=== PATIENT | male | born 1970 | race Caucasian/White ===

== ENCOUNTER 2022-08-24 10:38 | Inpatient (IN) | payer BC, SELFPAY ==
[2022-08-24 11:29] VITALS: BMI 34.2
[2022-08-24 12:00] LABS: SARS-CoV-2 NAA Rapid Test Not Detected (NotDetected)
[2022-08-24] MEDS ORDERED: Ondansetron PF 4 MG/2 ML Vial IVP PRN (12:47)
[2022-08-24] MEDS ORDERED: Acetaminophen 325 MG TAB PO PRN (12:47)
[2022-08-24] MEDS ORDERED: HYDROcodone/Acetaminophen 5/325 mg Tablet PO PRN (12:47)
[2022-08-24] MEDS ORDERED: Carvedilol 6.25 MG TAB PO SCH (13:00)
[2022-08-24 14:20] LABS: Troponin I 1.379 ng/mL (< 0.028)
[2022-08-24 15:57] LABS: Cardiac Risk 6.1 (Less than 4.5)
[2022-08-24] MEDS: Labetalol HCl 100 MG/20 ML VIAL SLOW IVP PRN ×2 (16:18→21:08)
[2022-08-24] MEDS: Carvedilol 6.25 MG TAB PO SCH (20:06)
[2022-08-24] MEDS: Nitroglycerin 2% Ointment 1 INCH/1 GM Packet TOP SCH (20:06)
[2022-08-24 20:07] LABS: Hemoglobin A1c 5.6 % (4.0-6.0)
[2022-08-24] MEDS ORDERED: Enoxaparin Sodium 120 MG/0.8 ML SYRINGE SC SCH (21:00)
[2022-08-24] MEDS: niCARdipine 25 MG in Sodium Chloride 0.9% 250 ML 250 ML IVPB SCH (22:27)
[2022-08-25] MEDS: niCARdipine 25 MG in Sodium Chloride 0.9% 250 ML 250 ML IVPB SCH (03:37)
[2022-08-25 04:33] LABS: #Basophils 0.1 10x3/uL (0.0-0.2); #Eosinphils 0.2 10x3/uL (0.0-0.5); #Monocytes 0.7 10x3/uL (0.0-1.1); #Neutrophils 7.9 10x3/uL (1.5-8.4); %Basophils 0.7 % (0.0-2.0); %Eosinophils 2.3 % (0.0-6.0); %Lymphocytes 14.3 % (18.0-47.0); %Monocytes 6.7 % (0.0-10.0); %Neutrophils 75.5 % (40.0-75.0); Hemoglobin 13.3 g/dL (13.5-17.5); Mean Corpuscular HGB CONC 35.5 g/dL (32.0-36.0); Mean Corpuscular Hemoglobin 34.7 pg (27.0-33.0); Mean Corpuscular Volume 97.9 fl (81.2-95.1); Mean Platelet Volume 9.2 fl (7.4-10.4); Platelet Count 233 10x3/uL (150-450); RBC Distribution Width 13.6 % (11.5-14.5); Red Blood Cell (RBC) Count 3.83 10x6/uL (4.32-5.72); White Blood Cell (WBC) Count 10.5 10x3/uL (3.5-10.5)
[2022-08-25 05:05] LABS: Anion Gap 15 mmol/L (10-20); BUN (Urea Nitrogen) 12 mg/dL (8.4-25.7); Calc. Creatinine Clearance 187 mL/min (70-130); Calcium 9.2 mg/dL (7.8-10.44); Carbon Dioxide 27 mmol/L (22-29); Chloride 99 mmol/L (98-107); Estimated GFR 103; Glucose 146 mg/dL (70-105); Potassium 3.5 mmol/L (3.5-5.1); Sodium 137 mmol/L (136-145)
[2022-08-25] MEDS: Nitroglycerin 2% Ointment 1 INCH/1 GM Packet TOP SCH (06:04)
[2022-08-25] MEDS: Carvedilol 6.25 MG TAB PO SCH (06:04)
[2022-08-25] MEDS ORDERED: Nitroglycerin 50 MG/250 ML BOT 250 ML ONE (06:11)
[2022-08-25] MEDS ORDERED: Heparin 10,000 UNITS/ 10 ML VIAL ONE ×3 (06:12→08:23)
[2022-08-25] MEDS ORDERED: Verapamil 5 MG/2 ML VIAL ONE (06:12)
[2022-08-25] MEDS ORDERED: Adenosine 6 MG/2 ML VIAL ONE (06:13)
[2022-08-25] MEDS ORDERED: Bivalirudin 250 MG VIAL ONE (06:13)
[2022-08-25] MEDS ORDERED: Lidocaine 1% MPF 2 ML VIAL ONE (06:17)
[2022-08-25] MEDS ORDERED: Lidocaine 1% 20 ML MDV ONE (06:19)
[2022-08-25] MEDS ORDERED: Midazolam HCl 2 mg/2 ml Vial ONE ×2 (06:58→08:02)
[2022-08-25] MEDS ORDERED: Fentanyl 100 MCG/2 ML VIAL ONE (06:58)
[2022-08-25] MEDS ORDERED: TICAGRELOR 90 MG TABLET ONE (07:30)
[2022-08-25] MEDS ORDERED: Morphine 2 MG/ML VIAL SLOW IVP PRN (08:25)
[2022-08-25] MEDS ORDERED: Lisinopril 10 MG TAB PO SCH (09:00)
[2022-08-25] MEDS: Fenofibrate Nanocrystallized 145 MG TAB PO SCH (09:07)
[2022-08-25] MEDS: Sodium Chloride 0.9% 1,000 ML IV SCH ×2 (09:07→18:43)
[2022-08-25 09:19] LABS: Troponin I 8.075 ng/mL (< 0.028)
[2022-08-25 09:26] LABS: Troponin I 37.014 ng/mL (< 0.028)
[2022-08-25] MEDS ORDERED: Losartan 25 MG TAB PO SCH (12:00)
[2022-08-25] MEDS: Carvedilol 12.5 MG TAB PO SCH (16:25)
[2022-08-25] MEDS ORDERED: Atorvastatin Calcium 40 MG TAB PO SCH ×2 (21:00)
[2022-08-26] MEDS: Sodium Chloride 0.9% 1,000 ML IV SCH (03:45)
[2022-08-26 04:06] LABS: #Basophils 0.1 10x3/uL (0.0-0.2); #Eosinphils 0.2 10x3/uL (0.0-0.5); #Monocytes 0.7 10x3/uL (0.0-1.1); #Neutrophils 5.4 10x3/uL (1.5-8.4); %Basophils 0.6 % (0.0-2.0); %Eosinophils 1.8 % (0.0-6.0); %Lymphocytes 22.3 % (18.0-47.0); %Monocytes 9.1 % (0.0-10.0); Hemoglobin 12.9 g/dL (13.5-17.5); Mean Corpuscular HGB CONC 34.5 g/dL (32.0-36.0); Mean Corpuscular Hemoglobin 34.6 pg (27.0-33.0); Mean Corpuscular Volume 100.3 fl (81.2-95.1); Mean Platelet Volume 9.4 fl (7.4-10.4); Platelet Count 202 10x3/uL (150-450); RBC Distribution Width 13.8 % (11.5-14.5); Red Blood Cell (RBC) Count 3.73 10x6/uL (4.32-5.72); White Blood Cell (WBC) Count 8.2 10x3/uL (3.5-10.5)
[2022-08-26 04:22] LABS: ALT (SGPT) 35 U/L (8-55); AST (SGOT) 51 U/L (5-34); Albumin 3.5 g/dL (3.5-5.0); Alkaline Phosphatase 39 U/L (40-110); Anion Gap 12 mmol/L (10-20); BUN (Urea Nitrogen) 12 mg/dL (8.4-25.7); Bilirubin, Total 0.7 mg/dL (0.2-1.2); Calc. Creatinine Clearance 189 mL/min (70-130); Calcium 9.1 mg/dL (7.8-10.44); Carbon Dioxide 27 mmol/L (22-29); Chloride 105 mmol/L (98-107); Estimated GFR 103; Globulin 2.6 g/dL (2.4-3.5); Glucose 134 mg/dL (70-105); Potassium 3.5 mmol/L (3.5-5.1); Protein, Total 6.1 g/dL (6.0-8.3); Sodium 140 mmol/L (136-145)
[2022-08-26] MEDS: Carvedilol 12.5 MG TAB PO SCH (07:34)
[2022-08-26] MEDS: Fenofibrate Nanocrystallized 145 MG TAB PO SCH (07:34)
[2022-08-26] MEDS ORDERED: Lisinopril 20 MG TAB PO SCH (09:00)
[2022-08-26] MEDS ORDERED: Aspirin Chewable 81 MG TAB PO SCH (09:00)
[2022-08-26] MEDS ORDERED: Losartan 25 MG TAB PO SCH (09:00)
[2022-08-26] MEDS ORDERED: Clopidogrel Bisulfate 75 MG TAB PO SCH (09:00)
[2022-08-26 10:26] VITALS: BP 153/87; TEMP 97.7
== END 2022-08-26 10:29 | disposition home or self-care (01) | DRG 247 ==
LOC: INTOOBSV 10:38 → CSHICU 10:38 → OBSVTOIN 08-25 08:25
PROVIDERS: ADMIT Internal Medicine; ATTEND Internal Medicine
PROC: 027236Z Dilation of Coronary Artery, Three Arteries with Three Drug-eluting Intraluminal Devices, Percutaneous Approach (ICD-10-PCS; principal; 2022-08-25)
PROC: 4A023N7 Measurement of Cardiac Sampling and Pressure, Left Heart, Percutaneous Approach (ICD-10-PCS; 2022-08-25)
PROC: B2111ZZ Fluoroscopy of Multiple Coronary Arteries using Low Osmolar Contrast (ICD-10-PCS; 2022-08-25)
PROC: B2151ZZ Fluoroscopy of Left Heart using Low Osmolar Contrast (ICD-10-PCS; 2022-08-25)
DX: I21.4 Non-ST elevation (NSTEMI) myocardial infarction (principal); I16.0 Hypertensive urgency; I51.7 Cardiomegaly; E78.1 Pure hyperglyceridemia; R73.9 Hyperglycemia, unspecified; I25.10 Atherosclerotic heart disease of native coronary artery without angina pectoris; E88.81 Metabolic syndrome and other insulin resistance; Z20.822 Contact with and (suspected) exposure to COVID-19; Z88.0 Allergy status to penicillin
CPT/HCPCS: 36415; 80048; 80053; 80061; 83036; 83735; 84484; 85025; 85347; 92928; 92929; 93005; 93010; 93306; 93458; 96372; 96374; 96375; 96376; 97139; 99152; 99153; C1725; C1769; C1874; C1887; C1894; C9600; C9601; G0378; J0153; J0583; J1644; J1650; J2250; J3010; J7050; U0002

== ENCOUNTER 2023-11-30 13:31 | Observation (INO) | payer BC ==
[2023-11-30 14:51] LABS: #Basophils 0.1 10x3/uL (0.0-0.2); #Eosinphils 0.5 10x3/uL (0.0-0.5); #Monocytes 0.7 10x3/uL (0.0-1.1); #Neutrophils 8.1 10x3/uL (1.5-8.4); %Basophils 0.8 % (0.0-2.0); %Eosinophils 4.6 % (0.0-6.0); %Lymphocytes 18.3 % (18.0-47.0); %Monocytes 6.3 % (0.0-10.0); %Neutrophils 69.5 % (40.0-75.0); Hematocrit 46.4 % (38.8-50.0); Hemoglobin 15.7 g/dL (13.5-17.5); Mean Corpuscular HGB CONC 33.8 g/dL (32.0-36.0); Mean Corpuscular Hemoglobin 29.5 pg (27.0-33.0); Mean Corpuscular Volume 87.1 fl (81.2-95.1); Mean Platelet Volume 9.4 fl (7.4-10.4); Platelet Count 273 10x3/uL (150-450); RBC Distribution Width 14.6 % (11.5-14.5); Red Blood Cell (RBC) Count 5.33 10x6/uL (4.32-5.72); White Blood Cell (WBC) Count 11.7 10x3/uL (3.5-10.5)
[2023-11-30 14:58] LABS: ALT (SGPT) 16 U/L (8-55); AST (SGOT) 14 U/L (5-34); Albumin 4.7 g/dL (3.5-5.0); Alkaline Phosphatase 47 U/L (40-110); Anion Gap 12 mmol/L (10-20); BUN (Urea Nitrogen) 17 mg/dL (8.4-25.7); Bilirubin, Total 0.4 mg/dL (0.2-1.2); Calc. Creatinine Clearance 0 mL/min (70-130); Calcium 9.9 mg/dL (7.8-10.44); Carbon Dioxide 28 mmol/L (22-29); Chloride 102 mmol/L (98-107); Estimated GFR 99; Globulin 2.6 g/dL (2.4-3.5); Glucose 108 mg/dL (70-105); Potassium 4.4 mmol/L (3.5-5.1); Protein, Total 7.3 g/dL (6.0-8.3); Sodium 138 mmol/L (136-145)
[2023-11-30 15:02] LABS: Troponin I Less than 0.010 ng/mL (< 0.028)
[2023-11-30] MEDS ORDERED: Aspirin Chewable 81 MG TAB ONE (15:18)
[2023-11-30] MEDS ORDERED: Nitroglycerin 0.4mg/Hour PATCH ONE (15:18)
[2023-11-30] MEDS ORDERED: Nitroglycerin 2% Ointment 1 INCH/1 GM Packet ONE (15:42)
[2023-11-30] MEDS ORDERED: Docusate 100 MG CAP PO PRN (16:41)
[2023-11-30] MEDS ORDERED: Calcium Carbonate 500 MG ChewTAB PO PRN (16:42)
[2023-11-30] MEDS ORDERED: Nitroglycerin 0.4 MG TAB (25 Tab Bottle) SL PRN (16:42)
[2023-11-30] MEDS ORDERED: Ondansetron PF 4 MG/2 ML Vial IVP PRN (16:42)
[2023-11-30] MEDS ORDERED: Senokot S 8.6-50 MG TAB PO PRN (16:42)
[2023-11-30] MEDS ORDERED: Acetaminophen 325 MG TAB PO PRN (16:42)
[2023-11-30] MEDS ORDERED: Ondansetron ODT 4 MG TAB PO PRN (16:42)
[2023-11-30] MEDS ORDERED: Enoxaparin 80 MG (0.8 mL) SYRINGE SC SCH (16:45)
[2023-11-30] MEDS ORDERED: Electrolyte Replacement Protocol 1 EACH FS SCH (16:45)
[2023-11-30] MEDS: Clopidogrel Bisulfate 75 MG TAB PO SCH (17:23)
[2023-11-30] MEDS: Carvedilol 12.5 MG TAB PO SCH (17:23)
[2023-11-30] MEDS ORDERED: Communication Order-Pharmacy FS SCH (17:30)
[2023-11-30 17:39] LABS: Troponin I Less than 0.010 ng/mL (< 0.028)
[2023-11-30] MEDS: Magnesium 2 GM/50 ML(in water) 2 GM in Premix 1 BAG IVPB SCH (17:48)
[2023-11-30 19:27] VITALS: BMI 39.1
[2023-11-30 20:43] LABS: Troponin I Less than 0.010 ng/mL (< 0.028)
[2023-11-30] MEDS: Nitroglycerin 2% Ointment 1 INCH/1 GM Packet TOP SCH (21:35)
[2023-11-30] MEDS ORDERED: FLU VACC QS2023-24(6MOS UP)/PF 60 MCG/0.5 ML SYRINGE IM ONE (21:45)
[2023-11-30] MEDS: Enoxaparin 120 MG/0.8 ML SYRINGE SC SCH (21:48)
[2023-11-30] MEDS: Icosapent Ethyl 1 GM CAPSULE PO SCH (21:49)
[2023-11-30] MEDS: Enoxaparin 30 MG (0.3 mL) SYRINGE SC SCH (21:49)
[2023-12-01] MEDS: Lisinopril 20 MG TAB PO SCH (05:52)
[2023-12-01] MEDS: Aspirin 81 mg Enteric Coated Tablet PO SCH (05:53)
[2023-12-01 06:08] LABS: #Basophils 0.1 10x3/uL (0.0-0.2); #Eosinphils 0.5 10x3/uL (0.0-0.5); #Monocytes 0.7 10x3/uL (0.0-1.1); #Neutrophils 5.1 10x3/uL (1.5-8.4); %Basophils 0.8 % (0.0-2.0); %Eosinophils 5.6 % (0.0-6.0); %Lymphocytes 28.2 % (18.0-47.0); %Monocytes 7.7 % (0.0-10.0); %Neutrophils 57.4 % (40.0-75.0); Hematocrit 38.7 % (38.8-50.0); Hemoglobin 12.8 g/dL (13.5-17.5); Mean Corpuscular HGB CONC 33.1 g/dL (32.0-36.0); Mean Corpuscular Hemoglobin 28.8 pg (27.0-33.0); Mean Platelet Volume 9.1 fl (7.4-10.4); Platelet Count 226 10x3/uL (150-450); RBC Distribution Width 14.9 % (11.5-14.5); Red Blood Cell (RBC) Count 4.45 10x6/uL (4.32-5.72); White Blood Cell (WBC) Count 8.9 10x3/uL (3.5-10.5)
[2023-12-01 06:23] LABS: PTT 25.6 sec (22.0-33.0)
[2023-12-01 06:25] LABS: ALT (SGPT) 14 U/L (8-55); AST (SGOT) 11 U/L (5-34); Albumin 3.9 g/dL (3.5-5.0); Alkaline Phosphatase 39 U/L (40-110); Anion Gap 13 mmol/L (10-20); BUN (Urea Nitrogen) 22 mg/dL (8.4-25.7); Bilirubin, Total 0.4 mg/dL (0.2-1.2); Calc. Creatinine Clearance 206 mL/min (70-130); Calcium 8.9 mg/dL (7.8-10.44); Carbon Dioxide 27 mmol/L (22-29); Cardiac Risk 4.3 (Less than 4.5); Chloride 103 mmol/L (98-107); Cholesterol 187 mg/dl (< 200 Desired); Estimated GFR 103; Globulin 2.1 g/dL (2.4-3.5); Glucose 125 mg/dL (70-105); HDL Cholesterol 43 mg/dL (>60 Neg Risk); LDL Cholesterol, Calculated 83 mg/dL; Sodium 139 mmol/L (136-145); Triglycerides 306 mg/dL (Less than 150)
[2023-12-01 07:04] VITALS: TEMP 97.8
[2023-12-01] MEDS ORDERED: Aspirin Chewable 81 MG TAB PO SCH (09:00)
[2023-12-01] MEDS: Atorvastatin Calcium 40 MG TAB PO SCH (09:28)
[2023-12-01] MEDS: Magnesium 2 GM/50 ML(in water) 2 GM in Premix 1 BAG IVPB SCH (09:31)
[2023-12-01] MEDS ORDERED: Heparin 10,000 UNITS/ 10 ML VIAL ONE (10:47)
[2023-12-01] MEDS ORDERED: Verapamil 5 MG/2 ML VIAL ONE (10:47)
[2023-12-01] MEDS ORDERED: Nitroglycerin 50 MG/250 ML BOT 250 ML ONE (10:47)
[2023-12-01] MEDS ORDERED: Atropine Sulfate 1 mg/1 ml Vial ONE (10:47)
[2023-12-01] MEDS ORDERED: Adenosine 6 mg (2 mL) VIAL ONE (10:48)
[2023-12-01] MEDS ORDERED: Midazolam HCl 2 mg/2 ml Vial ONE (10:48)
[2023-12-01] MEDS ORDERED: Lidocaine 1% PF 5 ML VIAL ONE (10:48)
[2023-12-01] MEDS ORDERED: fentaNYL 50 mcg/mL 1 mL Vial ONE (10:48)
[2023-12-01] MEDS ORDERED: Acetaminophen/Codeine 30-300mg Tablet PO PRN ×2 (12:01)
[2023-12-01] MEDS ORDERED: Nitroglycerin 0.4 MG TAB (25 Tab Bottle) SL PRN (12:01)
[2023-12-01] MEDS ORDERED: Sodium Chloride 0.9% 200 ML IV PRN (12:01)
[2023-12-01 13:30] VITALS: BP 163/92
== END 2023-12-01 16:30 | disposition home or self-care (01) ==
LOC: CSHERS 13:31 → CSHTELE 16:50
PROVIDERS: ADMIT Family Medicine; ATTEND Family Medicine
PROC: 4A023N7 Measurement of Cardiac Sampling and Pressure, Left Heart, Percutaneous Approach (ICD-10-PCS; principal; 2023-12-01)
PROC: B200YZZ Plain Radiography of Single Coronary Artery using Other Contrast (ICD-10-PCS; 2023-12-01)
DX: I25.118 Atherosclerotic heart disease of native coronary artery with other forms of angina pectoris (principal); R07.89 Other chest pain; I10 Essential (primary) hypertension; E78.5 Hyperlipidemia, unspecified; F17.290 Nicotine dependence, other tobacco product, uncomplicated; E66.9 Obesity, unspecified; Z68.39 Body mass index [BMI] 39.0-39.9, adult; Z88.0 Allergy status to penicillin; Z95.1 Presence of aortocoronary bypass graft
CPT/HCPCS: 36415; 71045; 80053; 80061; 83735; 84484; 85025; 85610; 85730; 93005; 93458; 94760; 94762; 96374; 96376; 99152; C1769; C1894; G0378; J0153; J0461; J1644; J2250; J3010; J3475